=== PATIENT | female | born 1955 | race Caucasian/White ===

== ENCOUNTER → 2017-04-30 | Outpatient (CLI) | payer OTHER ==
[~2017-04-30] MED LIST: CLB200 PO; FEOSOL PO; FLV400 PO; FSM70 PO; HYDC25 PO; METH2.5T PO; PRED-301 PO; SYN50 PO; [UNRECOGNIZED DRUG - OTHER]
== END | disposition home or self-care (01) ==
LOC: C.LABSPEC 17:21
PROVIDERS: ATTEND Podiatrist Primary Podiatric Medicine
DX: L60.3 Nail dystrophy (principal); B35.1 Tinea unguium

== ENCOUNTER 2024-02-25 16:19 | Inpatient (IN) ==
--- NOTE | 2024-02-25 17:04 | XRay Report ---
XR chest 1V portable CLINICAL HISTORY: hypoxia in setting of trauma TECHNIQUE: Single frontal radiograph of the chest was obtained. Comparison: None available at the time of this dictation. FINDINGS: No lines and tubes are seen. Cardiomegaly is noted. The lungs are clear. No evidence of pleural effus ion or pneumothorax. IMPRESSION: No acute abnormalities and in particular no radiographic evidence of pneumonia. ACT 112: Negative or not required by law. Electronically signed by: Tod Toney M.D. 02/25/2024 5:03 PM
[2024-02-25 17:16] LABS: Basophils # (auto) 0.05 K/uL (0.00-0.20); Basophils % (auto) 0.4 %; Eosinophils # (auto) 0.01 K/uL (0.00-0.50); Eosinophils % (auto) 0.1 %; Hematocrit (blood only) 40.2 % (37.0-47.0); Hemoglobin 12.5 g/dl (12.0-16.0); Immature Granulocytes # (auto) 0.37 K/uL (0.01-0.20); Immature Granulocytes % (auto) 2.8 %; Lymphocytes # (auto) 0.89 K/uL (1.20-3.40); Lymphocytes % (auto) 6.8 %; Mean Corpuscular Hgb Conc 31.1 g/dL (32.0-36.0); Mean Corpuscular Volume 89.9 fL (80.0-100.0); Mean Platelet Volume 10.6 fL (9.4-12.4); Monocytes # (auto) 0.87 K/uL (0.11-0.59); Monocytes % (auto) 6.7 %; Neutrophils # (auto) 10.86 K/uL (1.40-6.50); Neutrophils % (auto) 83.2 %; Platelet Count 318 K/uL (130-400); RDW Coefficient of Variation 19.9 % (11.5-14.5); RDW Standard Deviation 65.7 fL (36.4-46.3); Red Blood Count 4.47 M/uL (4.20-5.40); White Blood Count 13.05 K/ul (4.8-10.8)
[2024-02-25 17:31] LABS: Albumin Globulin Ratio 0.9 (0.9-2); BUN Creatinine Ratio 34.6 (10-20); Bilirubin,Total 0.5 mg/dl (0.2-1.0); Calcium 9.8 mg/dl (8.6-10.3); Creatinine Clr Calc Pharmacy 57.8 ml/min; Est GFR (African American) 85.9 ml/min; Est GFR (Non-African American) 74.1 ml/min; Globulin 4.3 gm/dl (2.5-4.0); Potassium 4.3 mmol/L (3.5-5.1); Total Protein 8.3 gm/dl (6.0-8.3)
[2024-02-25] MEDS: ONDANSETRON INJ 2 MG/ML 2 ML VIAL IV STA (18:32)
[2024-02-25] MEDS: HYDROmorphone INJ 0.5 MG/0.5 ML SYR IV STA (18:32)
[2024-02-25] MEDS: SODIUM CHLORIDE 0.9% 1,000 ML IV ONE ×2 (18:35→21:38)
--- NOTE | 2024-02-25 18:46 | Emergency Department Note ---
Impression & Plan Fracture of tibia and fibula, Fall, Multiple rib fractures, Hypoxia admit to the [facility] ED Provider Note NAME: MATY BOWIE AGE: 68 SEX: Female INFORMANT: Patient ED PROVIDER(S): Ema Chambers DO CHIEF COMPLAINT: Fall PLAN: Disposition: Admit to the [facility] MEDICAL DECISION MAKING: this is a 68-year-old female patient who suffers from osteoarthritis and rheumatoid arthritis. She was attempting to go up a step when she fell forward landing on both knees. Severe pain in the left knee and was unable to stand up. EMS was called. In an attempt to stand her up, the and EMS providers wrapped their arms around her chest and caused some pain to her right ribs. She has obvious deformity to the left knee and pain in the left ankle. Upon arrival to the emergency department, the patient was tachycardic and hypoxic with O2 saturation of 82% on room air with deformity to the left knee and pain in the left ankle. laboratory studies reveal white count of 1313.0. H&H are stable. BUN was elevated to 28 and creatinine was normal at 0.8. Glucose was 125. X- ray shows evidence of a proximal tibia and fibula fracture On the left. The left ankle has hardware in place with no obvious surrounding fractures. CT scan of the chest shows evidence of rib fractures to the third fourth and fifth ribs on the right with no underlying issues to the lung. radiology noted some findings to the sternum and manubrium but I believe these are chronic and not new traumatic injuries for this patient. Patient was bolused with a liter of normal saline solution as she appeared to be significantly dehydrated on physical exam and had an elevated BUN. This did seem to bring her heart rate down. I discussed the case with the [facility] and they will evaluate the patient for inpatient care. Care/management discussed with: manager private and the [facility] Triage Nursing notes: reviewed and agree With them. Vital Signs: reviewed and remarkable for tachycardia and hypoxia Additional History obtained from: her is at the bedside Chronic Medical/Social Conditions affecting care: OA/RA Differential Diagnosis: pneumothorax, rib fractures, tibial plateau fracture, knee dislocation, ankle fracture Diagnostics, independently interpreted by me: ECG: sinus tachycardia at a rate of 126 with PACs. There was no ST segment elevation or signs of ischemia. Cardiac Monitoring: Sinus tachycardia at 132. Imaging studies: CT scan of the chest: As per stat read Left tib-fib x-ray: As per my independent interpretation proximal tib-fib fracture Left ankle x-ray: As per my independent interpretation,Hardware in place with no obvious surrounding fractures. HPI: 68 year old Female arrives for evaluation of fall. patient was attempting to step up 1 step when she unfortunately fell down on both knees. She immediately had pain in her left knee and left ankle. she denies injuring any other part of her body during this incident. EMS was called to the home because the asthma was able to get her up or move her. As they were attempting to get her up off of the floor with the help of the , they squeezed her rib cage on the right too hard and she then had pain in her right ribs as well. Upon arrival in the emergency department, the patient was noted to be tachycardic and hypoxic. PAST MEDICAL HISTORY: See Below, PAST SURGICAL HISTORY: See Below, SOCIAL HISTORY: See Below, HOME MEDICATIONS: See list ALLERGIES: see list VITALS: See Below PHYSICAL EXAMINATION: HEENT: Head - normocephalic and atraumatic. Pupils are equal, round, and reactive to light. Extraocular eye muscles are intact, and sclera are anicteric. Nose - moist nasal mucosa without discharge. Mouth - moist buccal mucosa. Oropharynx is nonerythematous and there is no tonsillar exudate or edema noted. Neck: Supple; no cervical lymphadenopathy Heart: Tachycardic rate and regular rhythm There is a normal S1 and S2 with no murmurs, clicks, or gallops appreciated. Lungs: Clear to auscultation bilaterally with no wheezes, rales, or rhonchi. Abdomen: Soft, completely nontender, nondistended, with good bowel sounds. There are no palpable pulsatile masses or hepatosplenomegaly. There is no guarding, rigidity, or rebound noted. Extremities: significant edema to the left knee with pain to palpation in that area. Pain to palpation over the left ankle. Patient has palpable dorsalis pedis posterior tibial pulses. She is able to wiggle the toes. She has good sensation in the foot. Skin: warm and dry with good turgor and no rashes. emergency department treatment: cardiac monitor, supplemental oxygen, IV normal saline bolus, IV Dilaudid, IV Zofran Emergency department course: Patient was evaluated in room A-3. A complete history and physical was performed. Patient was on supplemental oxygen for significant hypoxia on room airIV lock was initiated and labs were drawn as above. An order was placed for continuous cardiac monitoring. The patient was in a sinus tachycardia at a rate of 132. A twelve-lead EKG was obtained. Patient was bolused with a liter of saline solution. She was given a dose of IV Dilaudid and IV Zofran. She had plain films of her left ankle and left knee. She went for CT scan of the chest. I reviewed these findings with the patient and her . I discussed the case with the [facility] Hospitalist and they will evaluate for further inpatient care and consult orthopedics. Past Med/Surg History Problem List (Updated 02/26/24 @ 00:08 by Ema Chambers DO) Hypoxia (Acute) Multiple rib fractures (Acute) Fall (Acute) Fracture of tibia and fibula (Acute) Chest wall pain Hypoxia Fall Medical History (Updated 02/26/24 @ 00:08 by Ema Chambers DO) Osteoporosis HTN (hypertension) Hypothyroidism Rheumatoid arthritis Surgical History (Updated 02/25/24 @ 20:52 by Hawa Mireles PA-C) Hx of hysterectomy Hx of exploratory laparotomy Family History (Updated 02/25/24 @ 20:53 by Hawa Mireles PA-C) Father Myocardial infarction 77 Mother Diabetes Osteoarthritis CHF (congestive heart failure) Social History (Updated 02/25/24 @ 20:53 by Hawa Mireles PA-C) Smoking Status: Never smoker Hx Alcohol Use: No Hx Substance Use: No marital status: Current Living Situation: Spouse Feels Safe at Home: Yes Allergies Allergies Allergy/AdvReac Type Severity Reaction Status Date / Time alendronate sodium Allergy Severe THROAT Verified 02/25/24 18:39 [From Fosamax] CLOSED Home Meds Home Medications Medication Instructions Recorded Confirmed celecoxib 200 mg capsule 200 mg PO BID 02/25/24 02/25/24 hydrochlorothiazide 12.5 mg capsule 12.5 mg PO DAILY PRN Edema 02/25/24 02/25/24 hydrocodone 5 mg-acetaminophen 325 1 tab PO DIRECTED PRN Pain 02/25/24 02/25/24 mg tablet levothyroxine 50 mcg tablet 50 mcg PO DAILYBB 02/25/24 02/25/24 (Synthroid) omeprazole magnesium 20 mg 20 mg PO DAILY 02/25/24 02/25/24 tablet,delayed release (Prilosec OTC) prednisone 5 mg tablet 5 mg PO QAM 02/25/24 02/25/24 Results & Data (ED) Vital Signs Vital Signs - 24 hr 02/25/24 16:44 02/25/24 16:47 02/25/24 16:53 Temperature 36.8 C Temperature Source Oral Pulse Rate 127 H 134 H Pulse Rate [Apical] 126 H Pulse Rhythm Regular Pulse Rhythm [Apical] Regular Respiratory Rate 22 22 Respiratory Effort / Characteristics Non-Labored Respiratory Depth Normal Normal Blood Pressure 146/99 H Blood Pressure [Right Arm] 146/99 H Blood Pressure Mean 114 Blood Pressure Mean [Right Arm] 114 Blood Pressure Position [Right Arm] Lying Pulse Oximetry 82 L 97 Oxygen Delivery Method Room Air Nasal Cannula Oxygen Flow Rate 4 Sepsis Recent Fever Within 48 Hours No Sepsis New/Unexplained Change in Mental Status No Sepsis Action Taken by Nursing No Action Required 02/25/24 16:53 02/25/24 18:26 02/25/24 20:00 Temperature Temperature Source Pulse Rate 132 H Pulse Rate [Apical] 127 H 124 H Pulse Rhythm Regular Pulse Rhythm [Apical] Respiratory Rate 22 22 24 Respiratory Effort / Characteristics Non-Labored Respiratory Depth Normal Normal Blood Pressure Blood Pressure [Right Arm] 137/97 130/94 Blood Pressure Mean Blood Pressure Mean [Right Arm] 110 106 Blood Pressure Position [Right Arm] Lying Pulse Oximetry 97 96 95 Oxygen Delivery Method Nasal Cannula Nasal Cannula Nasal Cannula Oxygen Flow Rate 4 4 4 Sepsis Recent Fever Within 48 Hours Sepsis New/Unexplained Change in Mental Status Sepsis Action Taken by Nursing 02/25/24 20:27 02/25/24 22:00 Temperature Temperature Source Pulse Rate 124 H Pulse Rate [Apical] 110 H Pulse Rhythm Pulse Rhythm [Apical] Respiratory Rate 19 Respiratory Effort / Characteristics Non-Labored Respiratory Depth Normal Blood Pressure Blood Pressure [Right Arm] 113/71 Blood Pressure Mean Blood Pressure Mean [Right Arm] 85 Blood Pressure Position [Right Arm] Pulse Oximetry 95 Oxygen Delivery Method Nasal Cannula Oxygen Flow Rate 4 Sepsis Recent Fever Within 48 Hours Sepsis New/Unexplained Change in Mental Status Sepsis Action Taken by Nursing Laboratory Data 02/25/24 16:50 02/25/24 16:50 Lab Results 02/25/24 Range/Units 16:50 WBC 13.05 H (4.8-10.8) K/ul RBC 4.47 (4.20-5.40) M/uL Hgb 12.5 (12.0-16.0) g/dl Hct 40.2 (37.0-47.0) % MCV 89.9 (80.0-100.0) fL MCH 28.0 (25.0-34.0) pg MCHC 31.1 L (32.0-36.0) g/dL RDW Std Deviation 65.7 H (36.4-46.3) fL RDW Coeff of Arash 19.9 H (11.5-14.5) % Plt Count 318 (130-400) K/uL MPV 10.6 (9.4-12.4) fL Immature Gran % (Auto) 2.8 % Neut % (Auto) 83.2 % Lymph % (Auto) 6.8 % [place] % (Auto) 6.7 % Eos % (Auto) 0.1 % Baso % (Auto) 0.4 % Neut # (Auto) 10.86 H (1.40-6.50) K/uL Lymph # (Auto) 0.89 L (1.20-3.40) K/uL [place] # (Auto) 0.87 H (0.11-0.59) K/uL Eos # (Auto) 0.01 (0.00-0.50) K/uL Baso # (Auto) 0.05 (0.00-0.20) K/uL Immature Gran # (Auto) 0.37 H (0.01-0.20) K/uL Sodium 137 (136-145) mmol/L Potassium 4.3 (3.5-5.1) mmol/L Chloride 104 (98-107) mmol/L Carbon Dioxide 22 (21-32) mmol/L Anion Gap 11 (3-11) BUN 28 H (6-23) mg/dl Creatinine 0.81 (0.6-1.2) mg/dl Est Cr Clr Drug Dosing 57.8 ml/min Est GFR ( Amer) 85.9 ml/min Est GFR (Non-Af Amer) 74.1 ml/min BUN/Creatinine Ratio 34.6 H (10-20) Glucose 125 H (70-99(Fasting)) mg/dl Calcium 9.8 (8.6-10.3) mg/dl Magnesium 1.9 (1.7-2.4) mg/dl Total Bilirubin 0.5 (0.2-1.0) mg/dl AST 13 (13-39) U/L ALT 15 (7-52) U/L Alkaline Phosphatase 53 (34-104) U/L Total Protein 8.3 (6.0-8.3) gm/dl Albumin 4.0 (3.4-5.0) gm/dl Globulin 4.3 H (2.5-4.0) gm/dl Albumin/Globulin Ratio 0.9 (0.9-2) Procalcitonin 0.05 (0-0.5) ng/ml Administered Medications Sodium Chloride (Nss) 1,000 mls @ 80 mls/hr IV .[id number] ONE Stop: 02/26/24 09:59 Last Admin: 02/25/24 21:38 Dose: 80 mls/hr Documented By: MANOLO Magnesium Sulfate/Dextrose (Magnesium Sulfate / D5w) 1 gm in 100 mls @ 50 mls/hr IV ONE ONE Stop: 02/25/24 23:59 Last Admin: 02/25/24 22:06 Dose: 50 mls/hr Documented By: MANOLO Oxycodone HCl (Oxycodone Hcl Ir 5 Mg Tab (Immediate Release)) 5 - 10 mg PO QID PRN PRN Reason: Pain Stop: 03/10/24 21:20 Last Admin: 02/25/24 21:40 Dose: 5 mg Documented By: MANOLO Discontinued Medications Hydromorphone HCl (Hydromorphone Inj 0.5 Mg/0.5 Ml Syr) 0.5 mg IV NOW STA Stop: 02/25/24 18:24 Last Admin: 02/25/24 18:32 Dose: 0.5 mg Documented By: ANTONIETTA Sodium Chloride (Nss) 1,000 mls @ 999 mls/hr IV .Q1H1M ONE Stop: 02/25/24 19:26 Last Infusion: 02/25/24 21:39 Dose: Infused Documented By: Admin: 02/25/24 18:35 Dose: 999 mls/hr Documented By: ANTONIETTA Ioversol (Optiray 320 100ml) 92 ml IV ONCE ONE Stop: 02/25/24 18:53 Last Admin: 02/25/24 18:53 Dose: 92 ml Documented By: RENNY Ketorolac Tromethamine (Ketorolac Tromethamine 15 Mg/Ml Vial) 15 mg IV NOW STA Stop: 02/25/24 23:14 Last Admin: 02/25/24 23:36 Dose: 15 mg Documented By: CHUCK Lidocaine (Lidocaine 5% 1 Patch) 1 patch TD ONE STA Stop: 02/25/24 23:11 Last Admin: 02/25/24 23:34 Dose: 1 patch Documented By: CHUCK Ondansetron HCl (Ondansetron Inj 2 Mg/Ml 2 Ml Vial) 4 mg IV NOW STA Stop: 02/25/24 18:24 Last Admin: 02/25/24 18:32 Dose: 4 mg Documented By: ANTONIETTA Imaging Data Radiologist's Impression: Chest X-Ray 02/25/24 16:48 XR chest 1V portable CLINICAL HISTORY: hypoxia in setting of trauma TECHNIQUE: Single frontal radiograph of the chest was obtained. Comparison: None available at the time of this dictation. FINDINGS: No lines and tubes are seen. Cardiomegaly is noted. The lungs are clear. No evidence of pleural effusion or pneumothorax. IMPRESSION: No acute abnormalities and in particular no radiographic evidence of pneumonia. ACT 112: Negative or not required by law. Electronically signed by: Tod Toney M.D. 02/25/2024 5:[address] 02/25/24 18:23 Exam(s): CT CHEST With Contrast IV Amt: 92 ml opti 320 EXAM: CT Chest With Intravenous Contrast CLINICAL HISTORY: Reason for exam: eval for trauma. TECHNIQUE: Axial computed tomography images of the chest with intravenous contrast. CTDI is 25.59 mGy and DLP is 800.9 mGy-cm. Automated exposure control was utilized for the study. A dose lowering technique was utilized adhering to the principles of ALARA. CONTRAST: Patient received 92 ml opti 320 of IV contrast COMPARISON: None FINDINGS: Lungs: Dependent atelectasis bilaterally. No mass. Pleural space: Unremarkable. No pneumothorax. No significant effusion. Heart: Unremarkable. No cardiomegaly. No significant pericardial effusion. No significant coronary artery calcifications. Mediastinum: Large hiatal hernia. Evaluation of the stomach is limited by underdistention. Thyroid: Enlarged thyroid. Hyperdense nodule in the right thyroid lobe. Further evaluation could be performed with ultrasound if clinically indicated. Bones/joints: Age indeterminate but possibly chronic compression deformities of T8, L1, L2, and partially visualized L3. Age indeterminate fracture deformity of the sternum and dislocation of the sternomanubrial joint. Age indeterminate but possibly chronic fracture deformity of the left scapula. Cervical fusion hardware. Mild anterolisthesis of T1 on T2 and T2 on T3. Mild retrolisthesis of T11 on T12. Old left rib fracture deformities. Question age-indeterminate nondisplaced fractures of the right anterior third and fourth and fifth ribs. Soft tissues: Unremarkable. Vasculature: Unremarkable. No thoracic aortic aneurysm. Lymph nodes: Unremarkable. No enlarged lymph nodes. Liver: Right hepatic cyst. Other tiny hypodensities in the kidneys are too small to definitively characterize. IMPRESSION: 1. Age indeterminate but possibly chronic compression deformities of T8, L1, L2, and partially visualized L3. 2. Age indeterminate fracture deformity of the sternum and dislocation of the sternomanubrial joint. 3. Question age-indeterminate nondisplaced fractures of the right anterior third and fourth and fifth ribs. 4. Large hiatal hernia. Evaluation of the stomach is limited by underdistention. Electronically signed by: Jenise Man M.D. 02/25/24 19:59 PM Discharge Plan Visit Data Chief Complaint: Fall ED Provider: Ema Chambers Discharge Problem: Fracture of tibia and fibula, Fall, Multiple rib fractures, Hypoxia Forms Stand Alone Forms: [facility] [employer] Prescriptions Prescriptions: No Action celecoxib 200 mg capsule 200 mg PO BID hydrocodone-acetaminophen 5-325 mg tablet 1 tab PO DIRECTED PRN (Reason: Pain) prednisone 5 mg tablet 5 mg PO QAM levothyroxine [Synthroid] 50 mcg tablet 50 mcg PO DAILYBB hydrochlorothiazide 12.5 mg capsule 12.5 mg PO DAILY PRN (Reason: Edema) omeprazole magnesium [Prilosec OTC] 20 mg Tablet,Delayed Release (Dr/Ec) 20 mg PO DAILY Referrals Referrals: Abhishek Hays DO [Primary Care Provider] - Discharge Problem: Fracture of tibia and fibula Qualifiers: Encounter type: initial encounter Fracture type: closed Laterality: left Q ualified Code(s): S82.202A - Unspecified fracture of shaft of left tibia, initial encounter for closed fracture; S82.402A - Unspecified fracture of shaft of left fibula, initial encounter for closed fracture Multiple rib fractures Qualifiers: Encounter type: initial encounter Fracture type: closed Laterality: right Q ualified Code(s): S22.41XA - Multiple fractures of ribs, right side, initial encounter for closed fracture
[2024-02-25] MEDS: OPTIRAY 320 100ml IV ONE (18:53)
--- NOTE | 2024-02-25 20:00 | CT Scan Report ---
Exam(s): CT CHEST With Contrast IV Amt: 92 ml opti 320 EXAM: CT Chest With Intravenous Contrast CLINICAL HISTORY: Reason for exam: eval for trauma. TECHNIQUE: Axial computed tomography images of the chest with intravenous contrast. CTDI is 25.59 mGy and DLP is 800.9 mGy-cm. Automated exposure control was utilized for the study. A dose lowering technique was utilized adhering to the principles of ALARA. CONTRAST: Patient received 92 ml opti 320 of IV contrast COMPARISON: None FINDINGS: Lungs: Dependent atelectasis bilaterally. No mass. Pleural space: Unremarkable. No pneumothorax. No significant effusion. Heart: Unremarkable. No cardiomegaly. No significant pericardial effusion. No significant coronary artery calcifications. Mediastinum: Large hiatal hernia. Evaluation of the stomach is limited by underdistention. Thyroid: Enlarged thyroid. Hyperdense nodule in the right thyroid lobe. Further evaluation could be performed with ultrasound if clinically indicated. Bones/joints: Age indeterminate but possibly chronic compression deformities of T8, L1, L2, and partially visualized L3. Age indeterminate fracture deformity of the sternum and dislocation of the sternomanubrial joint. Age indeterminate but possibly chronic fracture deformity of the left scapula. Cervical fusion hardware. Mild anterolisthesis of T1 on T2 and T2 on T3. Mild retrolisthesis of T11 on T12. Old left rib fracture deformities. Question age-indeterminate nondisplaced fractures of the right anterior third and fourth and fifth ribs. Soft tissues: Unremarkable. Vasculature: Unremarkable. No thoracic aortic aneurysm. Lymph nodes: Unremarkable. No enlarged lymph nodes. Liver: Right hepatic cyst. Other tiny hypodensities in the kidneys are too small to definitively characterize. IMPRESSION: 1. Age indeterminate but possibly chronic compression deformities of T8, L1, L2, and partially visualized L3. 2. Age indeterminate fracture deformity of the sternum and dislocation of the sternomanubrial joint. 3. Question age-indeterminate nondisplaced fractures of the right anterior third and fourth and fifth ribs. 4. Large hiatal hernia. Evaluation of the stomach is limited by underdistention. Electronically signed by: Jenise Man M.D. 02/25/24 19:59 PM
--- NOTE | 2024-02-25 20:54 | History & Physical Report ---
Date of Service February 25, 2024 Assessment & Plan (1) Fall: (2) Rheumatoid arthritis: (3) Hypoxia: (4) Chest wall pain: Plan This is a 68-year-old female who has significant past medical history of osteoporosis, hypothyroidism, rheumatoid arthritis and iron deficiency anemia wh o presents to ED after sustaining a fall today. Please refer to Dr. Thurston addendum for details regarding assessment and plan. History and physical exam was completed by undersigned. Layne Mireles PA-C History of Present Illness Chief Complaint: Fall prior to arrival. Primary Care Provider: Abhishek Hays, This is a 68-year-old female who has significant past medical history of osteoporosis, hypothyroidism, rheumatoid arthritis and iron deficiency anemia who presents to ED after sustaining a fall today. She was attempting to go up a step whenever she fell forward landing on both of her knees. She had significant pain in her left knee and unable to get up. EMS was summoned and when EMS arrived they tried to wrap arms around her chest causing pain in her ribs. Due to her rheumatoid arthritis she has chronic deformities and ambulates with a rollator. She has history of falls but has been without a fall for 5 years. Her last fall 5 years ago resulted in significant trauma with suspected sternal fracture, bilateral ankle fractures and right leg fracture requiring surgery. She said she has done quite well up until today. Prior to her fall today she was having no acute issues. She denies any recent illness. She denies fever, chills, sweats, lightheadedness, dizziness, shortness breath, cough, nausea, vomiting or abdominal pain. Currently she is experiencing some right lateral pain on her ribs that is worse with inspiration. She denies any current cough or hemoptysis. She is also complaining to pain to her left knee. In ED patient was tachycardic likely secondary to pain. She was hypoxic requiring oxygen supplementation. Allergies Allergy/AdvReac Type Severity Reaction Status Date / Time alendronate sodium Allergy Severe THROAT Verified 02/25/24 18:39 [From Fosamax] CLOSED Home Medications Medication Instructions Recorded Confirmed Type celecoxib 200 mg capsule 200 mg PO BID 02/25/24 02/25/24 History hydrochlorothiazide 12.5 mg capsule 12.5 mg PO DAILY PRN Edema 02/25/24 02/25/24 History hydrocodone 5 mg-acetaminophen 325 1 tab PO DIRECTED PRN Pain 02/25/24 02/25/24 History mg tablet levothyroxine 50 mcg tablet 50 mcg PO DAILYBB 02/25/24 02/25/24 History (Synthroid) omeprazole magnesium 20 mg 20 mg PO DAILY 02/25/24 02/25/24 History tablet,delayed release (Prilosec OTC) prednisone 5 mg tablet 5 mg PO QAM 02/25/24 02/25/24 History Past Med/Surg History Problem List (Updated 02/26/24 @ 00:08 by Ema Chambers DO) Hypoxia (Acute) Multiple rib fractures (Acute) Fall (Acute) Fracture of tibia and fibula (Acute) Chest wall pain Hypoxia Fall Medical History (Updated 02/26/24 @ 00:08 by Ema Chambers DO) Osteoporosis HTN (hypertension) Hypothyroidism Rheumatoid arthritis Surgical History (Updated 02/25/24 @ 20:52 by Hawa Mireles PA-C) Hx of hysterectomy Hx of exploratory laparotomy Family History (Updated 02/25/24 @ 20:53 by Hawa Mireles PA-C) Father Myocardial infarction 77 Mother Diabetes Osteoarthritis CHF (congestive heart failure) Social History (Updated 02/25/24 @ 20:53 by Hawa Mireles PA-C) Smoking Status: Never smoker Second Hand Exposure: No; Do You Dip or Chew Tobacco: No; Hx Alcohol Use: No Hx Substance Use: No Beliefs That Will Affect Care: None marital status: Current Living Situation: Spouse Other Information That Helps Us Care for You: No Feels Safe at Home: Yes Safety Concerns: Feels Safe At This Time Assistive Devices: Glasses and Walker Assistive Devices Comment: glasses here Review of Systems Review of Systems: All systems reviewed & are unremarkable except as noted in HPI & below Physical Exam Physical Exam: Constitutional: WD/WN, vitals as above, NAD, sitting up in bed, pleasant, co nversing easily Head: Normocephalic, Atraumatic Eyes: PERRL, conjunctivae normal, anicteric sclerae ENMT: external ear and nose normal, oropharynx normal Neck: trachea midline, no thyromegaly normal visual inspection Respiratory: normal respiratory effort, lungs clear to auscultation, no wheeze, rales, rhonchi. Normal insp/exp effort, no accessory muscle use Cardiovascular: tachycardic rate, reg rhythm, no murmur, no edema Vessels: no JVD or carotid bruit Chest:+ sternal deformity, pt reports present for 5 years Abdomen: normal bowel sounds, soft, nontender, no hepatosplenomegaly Musculoskeletal: no cyanosis or clubbing, + edema, pain to lateral aspect L knee, obvious deformity Skin: no rashes, warm and dry normal turgor Neurologic: PERRL, EOMI, accommodation nl, no face palsy, no dysarthria CN's II-XI intact bilaterally Psychiatric: A+Ox3, euthymic affect Lymphatic: no cervical or axillary lymphadenopathy : deferred Results & Data Results & Data Vital Signs (Past 12 Hours) Vital Signs Temp Pulse Pulse Resp BP BP Pulse Ox 02/25/24 20:27 124 H 02/25/24 20:00 124 H 24 130/94 95 02/25/24 18:26 127 H 22 137/97 96 02/25/24 16:53 132 H 22 97 02/25/24 16:53 126 H 22 146/99 H 97 02/25/24 16:47 36.8 C 134 H 22 146/99 H 82 L 02/25/24 16:44 127 H O2 Del Method O2 Flow Rate 02/25/24 20:27 02/25/24 20:00 Nasal Cannula 4 02/25/24 18:26 Nasal Cannula 4 02/25/24 16:53 Nasal Cannula 4 02/25/24 16:53 Nasal Cannula 4 02/25/24 16:47 Room Air 02/25/24 16:44 Diagnostic Findings Chest X-Ray 02/25/24 16:48 XR chest 1V portable CLINICAL HISTORY: hypoxia in setting of trauma TECHNIQUE: Single frontal radiograph of the chest was obtained. Comparison: None available at the time of this dictation. FINDINGS: No lines and tubes are seen. Cardiomegaly is noted. The lungs are clear. No evidence of pleural effusion or pneumothorax. IMPRESSION: No acute abnormalities and in particular no radiographic evidence of pneumonia. ACT 112: Negative or not required by law. Electronically signed by: Tod Toney M.D. 02/25/2024 5:[address] 02/25/24 18:23 Exam(s): CT CHEST With Contrast IV Amt: 92 ml opti 320 EXAM: CT Chest With Intravenous Contrast CLINICAL HISTORY: Reason for exam: eval for trauma. TECHNIQUE: Axial computed tomography images of the chest with intravenous contrast. CTDI is 25.59 mGy and DLP is 800.9 mGy-cm. Automated exposure control was utilized for the study. A dose lowering technique was utilized adhering to the principles of ALARA. CONTRAST: Patient received 92 ml opti 320 of IV contrast COMPARISON: None FINDINGS: Lungs: Dependent atelectasis bilaterally. No mass. Pleural space: Unremarkable. No pneumothorax. No significant effusion. Heart: Unremarkable. No cardiomegaly. No significant pericardial effusion. No significant coronary artery calcifications. Mediastinum: Large hiatal hernia. Evaluation of the stomach is limited by underdistention. Thyroid: Enlarged thyroid. Hyperdense nodule in the right thyroid lobe. Further evaluation could be performed with ultrasound if clinically indicated. Bones/joints: Age indeterminate but possibly chronic compression deformities of T8, L1, L2, and partially visualized L3. Age indeterminate fracture deformity of the sternum and dislocation of the sternomanubrial joint. Age indeterminate but possibly chronic fracture deformity of the left scapula. Cervical fusion hardware. Mild anterolisthesis of T1 on T2 and T2 on T3. Mild retrolisthesis of T11 on T12. Old left rib fracture deformities. Question age-indeterminate nondisplaced fractures of the right anterior third and fourth and fifth ribs. Soft tissues: Unremarkable. Vasculature: Unremarkable. No thoracic aortic aneurysm. Lymph nodes: Unremarkable. No enlarged lymph nodes. Liver: Right hepatic cyst. Other tiny hypodensities in the kidneys are too small to definitively characterize. IMPRESSION: 1. Age indeterminate but possibly chronic compression deformities of T8, L1, L2, and partially visualized L3. 2. Age indeterminate fracture deformity of the sternum and dislocation of the sternomanubrial joint. 3. Question age-indeterminate nondisplaced fractures of the right anterior third and fourth and fifth ribs. 4. Large hiatal hernia. Evaluation of the stomach is limited by underdistention. Electronically signed by: Jenise Man M.D. 02/25/24 19:59 PM Medications Administered Medication List Discontinued Medications Hydromorphone HCl (Hydromorphone Inj 0.5 Mg/0.5 Ml Syr) 0.5 mg IV NOW STA Stop: 02/25/24 18:24 Last Admin: 02/25/24 18:32 Dose: 0.5 mg Documented By: ANTONIETTA Sodium Chloride (Nss) 1,000 mls @ 999 mls/hr IV .Q1H1M ONE Stop: 02/25/24 19:26 Last Admin: 02/25/24 18:35 Dose: 999 mls/hr Documented By: ANTONIETTA Ioversol (Optiray 320 100ml) 92 ml IV ONCE ONE Stop: 02/25/24 18:53 Last Admin: 02/25/24 18:53 Dose: 92 ml Documented By: RENNY Ondansetron HCl (Ondansetron Inj 2 Mg/Ml 2 Ml Vial) 4 mg IV NOW STA Stop: 02/25/24 18:24 Last Admin: 02/25/24 18:32 Dose: 4 mg Documented By: ANTONIETTA COVID-19 Results Results COVID-19 Adm Lab Results: RBC 3.61 M/uL (4.20-5.40) L 02/26/24 WBC 6.76 K/ul (4.8-10.8) 02/26/24 Hgb 10.2 g/dl (12.0-16.0) L 02/26/24 Hct 32.6 % (37.0-47.0) L 02/26/24 Plt Count 195 K/uL (130-400) 02/26/24 Neutrophils (%) (Auto) 64.2 % 02/26/24 Lymphocytes (%) (Auto) 21.0 % 02/26/24 Monocytes # (Auto) 0.67 K/uL (0.11-0.59) H 02/26/24 Eosinophils # (Auto) 0.22 K/uL (0.00-0.50) 02/26/24 Immature Granulocyte % (Auto) 0.9 % 02/26/24 Neutrophils # (Auto) 4.34 K/uL (1.40-6.50) 02/26/24 Lymphocytes # (Auto) 1.42 K/uL (1.20-3.40) 02/26/24 Monocytes # (Auto) 0.67 K/uL (0.11-0.59) H 02/26/24 Eosinophils # (Auto) 0.22 K/uL (0.00-0.50) 02/26/24 Basophils # (Auto) 0.05 K/uL (0.00-0.20) 02/26/24 Immature Granulocyte # (Auto) 0.06 K/uL (0.01-0.20) 4 Na 139 mmol/L (136-145) 02/26/24 K 4.0 mmol/L (3.5-5.1) 02/26/24 Cl 110 mmol/L (98-107) H 02/26/24 CO2 24 mmol/L (21-32) 02/26/24 Anion Gap 5 (3-11) 02/26/24 BUN 24 mg/dl (6-23) H 02/26/24 Creatinine 0.65 mg/dl (0.6-1.2) 02/26/24 BUN/Creatinine Ratio 36.9 (10-20) H 02/26/24 Glucose Level 101 mg/dl (70-99(Fasting)) H 02/26/24 Ca 7.9 mg/dl (8.6-10.3) L 02/26/24 Total Bilirubin 0.5 mg/dl (0.2-1.0) 02/25/24 AST/SGOT 13 U/L (13-39) 02/25/24 ALT/SGPT 15 U/L (7-52) 02/25/24 Alkaline Phosphatase 53 U/L (34-104) 02/25/24 Total Protein 8.3 gm/dl (6.0-8.3) 02/25/24 Albumin 4.0 gm/dl (3.4-5.0) 02/25/24 Globulin 4.3 gm/dl (2.5-4.0) H 02/25/24 Albumin/Globulin Ratio 0.9 (0.9-2) 02/25/24 Procalcitonin 0.05 ng/ml (0-0.5) 02/25/[address] 02/25/24 Chest X-Ray 02/25/24 Code Status & VTE Plan Code Status FULL CODE Supervising Physician Co-Signing Physician Notes IM ATTENDING : Patient seen and examined. History obtained from patient and records. Concur with salient points upon review of preceding documentation by Ms. Hawa Mireles PA-C. I take responsibility for plan of care below. FINAL ASSESSMENT AND PLAN as follows : Hypoxemic respiratory failure secondary to traumatic rib fractures Traumatic left lower leg injury rule out fracture Underlying osteoporosis, history of RA on chronic steroid Rx Hypothyroidism, euthyroid as of recent outpatient TSH Steroid-induced hyperglycemia rule out DM History of difficult intubation Med telemetry supplemental O2 Analgesia,incentive spirometry Follow official left leg x-ray results. Orthopedics consult if with fracture Check hemoglobin A1c DVT prophylaxis. SCDs for now until fracture/procedure ruled out Full code Text document was generated using [employer] voice recognition software. It may contain grammatical or spelling errors. Kindly contact undersigned for clarification of any documentation item in question.
[2024-02-25 21:38] LABS: Magnesium 1.9 mg/dl (1.7-2.4)
[2024-02-25] MEDS: oxyCODONE HCL IR 5 MG TAB (IMMEDIATE RELEASE) PO PRN (21:40)
[2024-02-25] MEDS: MAGNESIUM SULFATE / D5W 1 GM/100 ML BAG IV ONE (22:06)
[2024-02-25] MEDS: LIDOCAINE 5% 1 PATCH TD STA (23:34)
[2024-02-25] MEDS: KETOROLAC TROMETHAMINE 15 MG/ML VIAL IV STA (23:36)
[2024-02-26 00:08] LABS: Base Excess VBG -0.4 mEq/L; HCO3 VBG 25 mmol/L; Oxygen Saturation VBG 62.3 %; PCO2 VBG 42 mmHg (38-50); PO2 VBG 39 mmHg; pH VBG 7.38 (7.36-7.41)
[2024-02-26] MEDS: MoRPHine SULFATE 2 MG/ML CARP IV PRN (00:20)
[2024-02-26] MEDS: CeleBREX 200 MG CAP PO SCH (03:06)
[2024-02-26 04:45] LABS: Appearance Urine Cloudy (Clear); Bacteria Urine Automated 1+ (None Seen); Bilirubin Urine Negative (Negative); Blood Urine 1+ (Negative); Cast Urine Automated 0-2 /lpf (0-2); Color Urine Yellow; Epithelial Cell Urine Auto 0-2 /hpf (0-2); Glucose Urine UA Negative (Negative); Ketones Urine Negative (Negative); Leukocyte Esterase Urine Negative (Negative); Nitrite Urine Positive (Negative); Protein Urine 1+ (Negative); Specific Gravity Urine > 1.045 (1.000-1.030); Urobilinogen Urine Negative (Negative); WBC Urine Automated 0-5 /hpf (0-5); pH Urine 5.5 (4.5-7.5)
[2024-02-26 05:12] LABS: Calcium Oxalate Crystals Urine Present (None Prsent)
[2024-02-26] MEDS: LEVOTHYROXINE SODIUM 50 MCG TABLET PO SCH (05:31)
[2024-02-26 07:11] LABS: Basophils # (auto) 0.05 K/uL (0.00-0.20); Basophils % (auto) 0.7 %; Eosinophils # (auto) 0.22 K/uL (0.00-0.50); Eosinophils % (auto) 3.3 %; Hematocrit (blood only) 32.6 % (37.0-47.0); Hemoglobin 10.2 g/dl (12.0-16.0); Immature Granulocytes # (auto) 0.06 K/uL (0.01-0.20); Immature Granulocytes % (auto) 0.9 %; Lymphocytes # (auto) 1.42 K/uL (1.20-3.40); Mean Corpuscular Hemoglobin 28.3 pg (25.0-34.0); Mean Corpuscular Hgb Conc 31.3 g/dL (32.0-36.0); Mean Corpuscular Volume 90.3 fL (80.0-100.0); Mean Platelet Volume 10.5 fL (9.4-12.4); Monocytes # (auto) 0.67 K/uL (0.11-0.59); Monocytes % (auto) 9.9 %; Neutrophils # (auto) 4.34 K/uL (1.40-6.50); Neutrophils % (auto) 64.2 %; Platelet Count 195 K/uL (130-400); RDW Coefficient of Variation 19.9 % (11.5-14.5); RDW Standard Deviation 66.1 fL (36.4-46.3); Red Blood Count 3.61 M/uL (4.20-5.40); White Blood Count 6.76 K/ul (4.8-10.8)
--- NOTE | 2024-02-26 07:17 | XRay Report ---
XR ankle LT min 3V routine CLINICAL HISTORY: trauma COMPARISON STUDY: None. FINDINGS: Postoperative changes within the left ankle demonstrated by internal fixation with cortical plates and screws. The distal tibia and fibula are fused. There are severe degenerative changes at t he tibiotalar joint. The bones are osteopenic. Irregularity at the anterior distal tibia on the later al view favors an old, healed fracture. No definite acute fracture or dislocation within the left ank le. The hardware appears intact. IMPRESSION: 1. No definite acute fracture or dislocation within the left ankle. 2. Operative changes as described above. 3. Irregularity at the anterior distal tibia favors an old, healed fracture. ACT 112: Negative or not required by law. Electronically signed by: Long Major M.D. 02/26/2024 7:15 AM
[2024-02-26 07:19] LABS: Estimated Average Glucose 100 mg/dl; Hemoglobin A1C 5.1 % (4.5-5.6)
[2024-02-26 07:25] LABS: BUN Creatinine Ratio 36.9 (10-20); Calcium 7.9 mg/dl (8.6-10.3); Est GFR (Non-African American) 90.6 ml/min
[2024-02-26] MEDS: PANTOprazole 40 MG TAB PO SCH (08:22)
[2024-02-26] MEDS: predniSONE 5 MG TAB PO SCH (08:23)
--- NOTE | 2024-02-26 08:44 | Electrocardiogram Report ---
Test Reason : Blood Pressure : / mmHG Vent. Rate : 126 BPM Atrial Rate : 126 BPM P-R Int : 150 ms QRS Dur : 076 ms QT Int : 298 ms P-R-T Axes : 012 012 009 degrees QTc Int : 431 ms Sinus tachycardia with Premature atrial complexes Otherwise normal ECG No previous ECGs available Confirmed by John Smith ([id number]) on 02/26/2024 8:44:21 AM Referred By: REFERRED SELF Confirmed By:John Smith
--- NOTE | 2024-02-26 09:26 | XRay Report ---
XR knee LT 1 or 2V routine CLINICAL HISTORY: trauma TECHNIQUE: 2 views of the left knee were obtained. Comparison: None available at the time of this dictation. FINDINGS: Impaction fracture of the tibial plateau is seen with intra-articular extension. Fracture of the tibi a is seen. Severe osteoarthritic changes are seen. A small suprapatellar effusion is seen. Soft tissu e swelling is seen about the knee. IMPRESSION: Intra-articular fracture of the tibia and fibula with associated soft tissue swelling. ACT 112: Negative or not required by law. Electronically signed by: Tod Toney M.D. 02/26/2024 9:25 AM
[2024-02-26] MEDS: cefTRIAXone SODIUM 1,000 MG/50 ML BAG IV SCH (10:30)
--- NOTE | 2024-02-26 15:18 | CT Scan Report ---
CT knee LT wo con CLINICAL HISTORY: Left knee tibial plateau fracture COMPARISON STUDY: Left knee radiographs February 25, 2024. TECHNIQUE: Axial images of the left knee were obtained without IV contrast. Sagittal and coronal aneta nstructed reviewed. Automated exposure control was utilized for the study. A dose lowering technique was utilized adhering to the principles of ALARA. FINDINGS: There is a comminuted mildly displaced proximal left tibial fracture. Fracture extends to t he medial and lateral tibial plateaus as well as the tibial spines. A bone fragment along the lateral tibial plateau is present. There is no depression of the medial tibial plateau. Mild depression of 4 mm of the posterior aspect of the lateral tibial plateau is present. This fracture is likely acute a lthough subacute fracture could appear similar. There is also a comminuted mildly displaced left fibu lar head and neck fracture. This fracture is impacted. Severe medial compartment joint space narrowin g is noted. There is also moderate lateral and patellofemoral compartment joint space narrowing with osteophytosis. Moderate size joint effusion with lipohemarthrosis is present. IMPRESSION: 1. Comminuted mildly displaced proximal left tibial fracture which extends through the medial and lat eral tibial plateaus. Lateral tibial plateau mildly depressed. 2. Comminuted mildly displaced impacted left fibular head and neck fracture. 3. Moderate joint effusion with lipohemarthrosis. 4. Severe left knee osteoarthritis, most pronounced within the medial compartment. ACT 112: Negative or not required by law. Electronically signed by: Epifanio Tapia M.D. 02/26/2024 3:17 PM
[2024-02-26] MEDS ORDERED: POLYETHYLENE (MIRALAX) 17 GM PACK PO PRN (16:17)
--- NOTE | 2024-02-26 16:24 | Hospitalist Progress Note ---
Date of Service February 26, 2024 Assessment & Plan (1) Fall: Plan: Patient is a 68 yr female who has significant past medical history of osteoporosis, hypothyroidism, rheumatoid arthritis and iron deficiency anemia who presents to ED after sustaining a fall today. Left Tibia/Fibular Fracture Secondary to fall ---Left Knee CT:Comminuted mildly displaced proximal left tibial fracture which extends through the medial and lateral tibial plateaus. Lateral tibial plateau mildly depressed. Comminuted mildly displaced impacted left fibular head and neck fracture. Moderate joint effusion with lipohemarthrosis. Severe left knee osteoarthritis, most pronounced within the medial compartment. --Left Ankle X ray:No definite acute fracture or dislocation within the left ankle. Operative changes as described above. Irregularity at the anterior distal tibia favors an old, healed fracture. Pain control Fall precautions Bowel regimen to prevent constipation Orthopedics consulted PT OT as able Suspected UTI --Urine culture pending Empirically on Rocephin H/O Sternal, Rib fractures --CT Chest:Age indeterminate but possibly chronic compression deformities of T8, L1, L2, and partially visualized L3. Age indeterminate fracture deformity of the sternum and dislocation of the sternomanubrial joint. Question age-indeterminate nondisplaced fractures of the right anterior third and fourth and fifth ribs. Large hiatal hernia. Evaluation of the stomach is limited by underdistention. Fall precautions Incentive spirometry Pain management as above Hypoxia Likely due to restricted breathing from rib pain, pain meds contributing as well --CXR:No acute abnormalities and in particular no radiographic evidence of pneumonia. Incentive spirometry Continue supplemental oxygen as needed Rheumatoid Arthritis Psoriatic arthritis Osteoarthritis Continue home prednisone Follows with rheumatology as outpatient Hypothyroidism Continue levothyroxine DVT Px: SCDs for now --may need procedure Code Status Full code Admission and Anticipated Discharge Date Admission Date: February 25, 2024 Subjective Patient is seen and examined at bedside States having right rib and left knee pain since the fall Denies any chest pain, dyspnea, dizziness, nausea, vomiting, abdominal pain Review of Systems Review of Systems: All systems reviewed & are unremarkable except as noted in Subjective Physical Exam Physical Exam: Physical Exam: Vitals signs as noted above General Appearance:Moderately built and nourished, no apparent distress Head: normocephalic, Atraumatic Eyes: normal inspection, EOMI Neck: supple, Trachea midline Respiratory/Chest: Normal breath sounds, CTA, No accessory muscle use Cardiovascular: S1, S2, +murmur ,+Tachycardia Abdomen/GI:Soft, Non tender, Bowel sounds present Extremities/Musculoskeletal:normal inspection, L knee tender, swollen, decreased ROM, +edema, + psoriatic/RA changes and several joints Neurologic/Psych:AAOX3, grossly no focal neurological deficits Skin: normal color, warm Results & Data Results & Data Vital Signs (Past 12 Hours) Vital Signs Temp Pulse Pulse Resp BP Pulse Ox O2 Del Method 02/26/24 15:17 103 H 02/26/24 11:09 37.2 C 98 H 18 104/61 95 Nasal Cannula 02/26/24 09:53 Nasal Cannula 02/26/24 08:21 36.8 C 98 H 18 111/68 96 Nasal Cannula 02/26/24 07:26 93 H O2 Flow Rate 02/26/24 15:17 02/26/24 11:09 4 02/26/24 09:53 4 02/26/24 08:21 4 02/26/24 07:26 Laboratory Results Short CBC 02/25/24 02/26/24 Range/Units 16:50 06:16 WBC 13.05 H 6.76 (4.8-10.8) K/ul Hgb 12.5 10.2 L (12.0-16.0) g/dl Hct 40.2 32.6 L (37.0-47.0) % Plt Count 318 195 (130-400) K/uL [facility] 02/25/24 02/26/24 16:50 06:16 Sodium 137 139 Potassium 4.3 4.0 Chloride 104 110 H Carbon Dioxide 22 24 BUN 28 H 24 H Creatinine 0.81 0.65 Glucose 125 H 101 H Calcium 9.8 7.9 L Liver Function 02/25/24 Range/Units 16:50 Total Bilirubin 0.5 (0.2-1.0) mg/dl AST 13 (13-39) U/L ALT 15 (7-52) U/L Alkaline Phosphatase 53 (34-104) U/L Albumin 4.0 (3.4-5.0) gm/dl Urine 02/26/24 Range/Units 04:06 Urine Color Yellow Urine Appearance Cloudy A (Clear) Urine pH 5.5 (4.5-7.5) Ur Specific [place] > 1.045 H (1.000-1.030) Urine Protein 1+ H (Negative) Urine Glucose (UA) Negative (Negative)
[2024-02-26] MEDS: DOCUSATE SODIUM 100 MG CAP PO SCH (20:41)
[2024-02-26] MEDS: LIDOCAINE 5% 1 PATCH TD SCH (20:41)
[2024-02-27 06:45] LABS: Hematocrit (blood only) 34.6 % (37.0-47.0); Hemoglobin 10.7 g/dl (12.0-16.0); Mean Corpuscular Hemoglobin 28.1 pg (25.0-34.0); Mean Corpuscular Hgb Conc 30.9 g/dL (32.0-36.0); Mean Corpuscular Volume 90.8 fL (80.0-100.0); Mean Platelet Volume 11.2 fL (9.4-12.4); Platelet Count 201 K/uL (130-400); RDW Coefficient of Variation 20.2 % (11.5-14.5); RDW Standard Deviation 67.9 fL (36.4-46.3); Red Blood Count 3.81 M/uL (4.20-5.40); White Blood Count 7.79 K/ul (4.8-10.8)
[2024-02-27 08:03] LABS: BUN Creatinine Ratio 32.1 (10-20); Calcium 8.1 mg/dl (8.6-10.3); Creatinine Clr Calc Pharmacy 85.3 ml/min; Est GFR (African American) 110.3 ml/min; Est GFR (Non-African American) 95.1 ml/min; Potassium 4.1 mmol/L (3.5-5.1)
--- NOTE | 2024-02-27 09:17 | Orthopedic Consultation ---
Date of Consultation February 27, 2024 Assessment & Plan (1) Closed fracture of left tibial plateau: She has a mildly comminuted and mildly displaced bicondylar tibial plateau fracture in the setting of obvious severe osteoporosis and tricompartmental osteoarthritis. I would recommend nonoperative management of this injury. She should remain nonweightbearing in a knee immobilizer. I discussed with her that obviously transfers and ambulation are can be very difficult for her due to her severe upper extremity deformities and weakness that will likely make it difficult for her to bear weight on her upper extremities. He reports that he is unable to lift her, and she may therefore very likely require rehab placement while this fracture heals. This will likely take several months. She can follow-up with one of our knee surgeons in orthopedics clinic (Dr. Knight, Dr. Rodriguez) 1-2 weeks after discharge. Please call [facility] at [phone] to make an appointment. Orthopedics will sign off. History of Present Illness Reason for Consultation: "Intra-articular fracture of the tibia and fibula" Requesting Physician: Dr. Dunaway Attending Physician: Antonio Dunaway MD History of Present Illness Ms. Greenfield is a 68 year old female with known osteoporosis and severe rheumatoid arthritis who injured her left knee during a ground-level fall on 02/25/24. She had immediate pain and inability to wear bear weight on her left leg. She was picked up by EMS around her torso, causing rib pain. This is presumably restricting her breathing, as she is currently requiring oxygen supplementation. She has a history of a fall about 5 years ago causing sternal fracture, bilateral ankle fracture, and what sounds like a tibial shaft fracture. She is accompanied by her today. They report that she has been diagnosed with osteoporosis at least 4 years ago, but is not currently on any medication for this. She took 1 dose of Fosamax and had what sounds like an allergic reaction, and has never had any other treatment. Of note, she c urrently ambulates with a rollator walker. She has severe bilateral hand deformity, right worse than left, with diffuse upper extremity weakness related to her rheumatoid arthritis. She had pre-existing bilateral knee pain, right worse than left. Allergies Allergy/AdvReac Type Severity Reaction Status Date / Time alendronate sodium Allergy Severe THROAT Verified 02/25/24 18:39 [From Fosamax] CLOSED Home Medications Medication Instructions Recorded Confirmed Type celecoxib 200 mg capsule 200 mg PO BID 02/25/24 02/25/24 History hydrochlorothiazide 12.5 mg capsule 12.5 mg PO DAILY PRN Edema 02/25/24 02/25/24 History hydrocodone 5 mg-acetaminophen 325 1 tab PO DIRECTED PRN Pain 02/25/24 02/25/24 History mg tablet levothyroxine 50 mcg tablet 50 mcg PO DAILYBB 02/25/24 02/25/24 History (Synthroid) omeprazole magnesium 20 mg 20 mg PO DAILY 02/25/24 02/25/24 History tablet,delayed release (Prilosec OTC) prednisone 5 mg tablet 5 mg PO QAM 02/25/24 02/25/24 History Patient History Medical History (Updated 02/27/24 @ 11:01 by Harry Perez M.D.) Osteoporosis HTN (hypertension) Hypothyroidism Rheumatoid arthritis Surgical History (Updated 02/25/24 @ 20:52 by Hawa Mireles PA-C) Hx of hysterectomy Hx of exploratory laparotomy Family History (Updated 02/25/24 @ 20:53 by Hawa Mireles PA-C) Father Myocardial infarction 77 Mother Diabetes Osteoarthritis CHF (congestive heart failure) Social History (Updated 02/25/24 @ 20:53 by Hawa Mireles PA-C) Smoking Status: Never smoker Second Hand Exposure: No; Do You Dip or Chew Tobacco: No; Hx Alcohol Use: No Hx Substance Use: No Communication Ability: Effective Beliefs That Will Affect Care: None marital status: Current Living Situation: Spouse Other Information That Helps Us Care for You: No Feels Safe at Home: Yes Safety Concerns: Feels Safe At This Time Assistive Devices: Raised Toilet Seat and Walker Assistive Devices Comment: glasses here Physical Exam Physical Exam: Examination of her left knee reveals no gross deformity, and surprisingly mild swelling. No significant ecchymosis. Range of motion was not tested due to the known fracture. Compartments are soft and compressible. Intact toe and ankle dorsiflexion and plantarflexion, although severe deformities of her toes are noted. Sensation is intact to light touch. Results & Data Vital Signs (Past 12 Hours) Vital Signs Temp Pulse Pulse Resp BP BP Pulse Ox 02/27/24 08:14 06/01/24 07:21 36.6 C 108 H 18 99/68 L 90 02/27/24 03:01 36.5 C 107 H 18 111/76 92 02/26/24 23:15 36.7 C 103 H 20 124/80 93 02/26/24 22:57 105 H O2 Del Method O2 Flow Rate 02/27/24 08:14 Nasal Cannula 3 02/27/24 07:21 Nasal Cannula 2 02/27/24 03:01 Nasal Cannula 2 02/26/24 23:15 Nasal Cannula 2 02/26/24 22:57 Diagnostic Findings Previous x-rays and CT scan of the left knee, as well as x-rays of the left ankle were all independently interpreted by me. Her left knee x-rays and CT scan show a mildly comminuted and and mildly displaced bicondylar tibial plateau fracture. Overall the joint line is well-maintained, with relatively mild depression of the proximal tibial metaphysis. She has obvious severe pre- existing tricompartmental arthritis with valgus collapse of the knee. Obvious osteopenia. Left ankle x-rays show fixation of a previous by malleolar ankle fracture. There is severe ankle joint arthritis. No acute fractures or hardware failure is seen. (1) Closed fracture of left tibial plateau Encounter type: initial encounter Qualified Code(s): S82.142A - Displaced bicondylar fracture of left tibia, initial encounter for closed fracture
--- NOTE | 2024-02-27 17:39 | Hospitalist Progress Note ---
Date of Service February 27, 2024 Assessment & Plan (1) Fall: Plan: Patient is a 68 yr female who has significant past medical history of osteoporosis, hypothyroidism, rheumatoid arthritis and iron deficiency anemia who presents to ED after sustaining a fall today. Left Tibia/Fibular Fracture Secondary to fall ---Left Knee CT:Comminuted mildly displaced proximal left tibial fracture which extends through the medial and lateral tibial plateaus. Lateral tibial plateau mildly depressed. Comminuted mildly displaced impacted left fibular head and neck fracture. Moderate joint effusion with lipohemarthrosis. Severe left knee osteoarthritis, most pronounced within the medial compartment. --Left Ankle X ray:No definite acute fracture or dislocation within the left ankle. Operative changes as described above. Irregularity at the anterior distal tibia favors an old, healed fracture. Pain control Fall precautions Bowel regimen to prevent constipation PT OT rere Appreciate orthopedics input: Conservative management Nonweightbearing with knee immobilizer per Ortho Will likely need rehab placement Needs follow-up with orthopedics on discharge in 1 to 2 weeks Suspected UTI --Urine culture not contribute Will discontinue IV Rocephin after 3 doses H/O Sternal, Rib fractures --CT Chest:Age indeterminate but possibly chronic compression deformities of T8, L1, L2, and partially visualized L3. Age indeterminate fracture deformity of the sternum and dislocation of the sternomanubrial joint. Question age-indeterminate nondisplaced fractures of the right anterior third and fourth and fifth ribs. Large hiatal hernia. Evaluation of the stomach is limited by underdistention. Fall precautions Incentive spirometry Pain management as above Hypoxia Likely due to restricted breathing from rib pain, pain meds contributing as well --CXR:No acute abnormalities and in particular no radiographic evidence of pneumonia. Incentive spirometry Continue supplemental oxygen as needed Titrate down supplemental oxygen as able Rheumatoid Arthritis Psoriatic arthritis Osteoarthritis Continue home prednisone Follows with rheumatology as outpatient Hypothyroidism Continue levothyroxine DVT Px: Heparin SQ Code Status Full code Admission and Anticipated Discharge Date Admission Date: February 25, 2024 Subjective Patient is seen and examined at bedside States knee pain is controlled with medications Rib pain much improved today Discussed with patient's family at bedside Denies any chest pain, dyspnea, dizziness, nausea, vomiting, abdominal pain Review of Systems Review of Systems: All systems reviewed & are unremarkable except as noted in Subjective Physical Exam Physical Exam: Physical Exam: Vitals signs as noted above General Appearance:Moderately built and nourished, no apparent distress Head: normocephalic, Atraumatic Eyes: normal inspection, EOMI Neck: supple, Trachea midline Respiratory/Chest: Normal breath sounds, CTA, No accessory muscle use Cardiovascular: S1, S2, +murmur ,+Tachycardia Abdomen/GI:Soft, Non tender, Bowel sounds present Extremities/Musculoskeletal:normal inspection, L knee tender, swollen, decreased ROM, +edema, + psoriatic/RA changes and several joints Neurologic/Psych:AAOX3, grossly no focal neurological deficits Skin: normal color, warm Results & Data Results & Data Vital Signs (Past 12 Hours) Vital Signs Temp Pulse Pulse Resp BP BP Pulse Ox 02/27/24 16:55 36.5 C 103 H 18 111/65 95 02/27/24 15:04 108 H 02/27/24 11:14 108/80 02/27/24 10:52 36.6 C 106 H 18 82/63 L 91 02/27/24 08:14 02/27/24 07:30 104 H 02/27/24 07:21 36.6 C 108 H 18 99/68 L 90 O2 Del Method O2 Flow Rate 02/27/24 16:55 Nasal Cannula 4 02/27/24 15:04 02/27/24 11:14 02/27/24 10:52 Nasal Cannula 3 02/27/24 08:14 Nasal Cannula 3 02/27/24 07:30 02/27/24 07:21 Nasal Cannula 2 Laboratory Results Short CBC 02/27/24 Range/Units 06:05 WBC 7.79 (4.8-10.8) K/ul Hgb 10.7 L (12.0-16.0) g/dl Hct 34.6 L (37.0-47.0) % Plt Count 201 (130-400) K/uL BMP 02/27/24 06:05 Sodium 139 Potassium 4.1 Chloride 108 H Carbon Dioxide 24 BUN 18 Creatinine 0.56 L Glucose 104 H Calcium 8.1 L
[2024-02-27] MEDS: HEPARIN SOD 5,000 UNIT/0.5 ML VIAL SQ SCH (20:05)
[2024-02-28 06:20] LABS: Hematocrit (blood only) 34.9 % (37.0-47.0); Hemoglobin 11.2 g/dl (12.0-16.0); Mean Corpuscular Hemoglobin 28.6 pg (25.0-34.0); Mean Corpuscular Hgb Conc 32.1 g/dL (32.0-36.0); Mean Platelet Volume 10.3 fL (9.4-12.4); Platelet Count 173 K/uL (130-400); RDW Coefficient of Variation 20.1 % (11.5-14.5); RDW Standard Deviation 65.1 fL (36.4-46.3); Red Blood Count 3.92 M/uL (4.20-5.40); White Blood Count 7.47 K/ul (4.8-10.8)
[2024-02-28 06:36] LABS: BUN Creatinine Ratio 27.4 (10-20); Creatinine Clr Calc Pharmacy 77.4 ml/min; Est GFR (African American) 106.6 ml/min; Potassium 4.2 mmol/L (3.5-5.1)
[2024-02-28] MEDS: SODIUM CHLORIDE 0.9% 1,000 ML IV ONE (12:29)
--- NOTE | 2024-02-28 15:50 | Hospitalist Progress Note ---
Date of Service February 28, 2024 Assessment & Plan (1) Fall: Plan: Patient is a 68 yr female who has significant past medical history of osteoporosis, hypothyroidism, rheumatoid arthritis and iron deficiency anemia who presents to ED after sustaining a fall today. Left Tibia/Fibular Fracture Secondary to fall ---Left Knee CT:Comminuted mildly displaced proximal left tibial fracture which extends through the medial and lateral tibial plateaus. Lateral tibial plateau mildly depressed. Comminuted mildly displaced impacted left fibular head and neck fracture. Moderate joint effusion with lipohemarthrosis. Severe left knee osteoarthritis, most pronounced within the medial compartment. --Left Ankle X ray:No definite acute fracture or dislocation within the left ankle. Operative changes as described above. Irregularity at the anterior distal tibia favors an old, healed fracture. Pain control Fall precautions Bowel regimen to prevent constipation PT OT rere Appreciate orthopedics input: Conservative management Nonweightbearing with knee immobilizer per Ortho Needs follow-up with orthopedics on discharge in 1 to 2 weeks PT recommends rehab placement Case management to help with discharge planning Abnormal urinalysis--rule out UTI --Urine culture not contribute Received IV Rocephin --3 doses H/O Sternal, Rib fractures --CT Chest:Age indeterminate but possibly chronic compression deformities of T8, L1, L2, and partially visualized L3. Age indeterminate fracture deformity of the sternum and dislocation of the sternomanubrial joint. Question age-indeterminate nondisplaced fractures of the right anterior third and fourth and fifth ribs. Large hiatal hernia. Evaluation of the stomach is limited by underdistention. Fall precautions Incentive spirometry Pain management as above Hypoxia Likely due to restricted breathing from rib pain, pain meds contributing as well --CXR:No acute abnormalities and in particular no radiographic evidence of pneumonia. Incentive spirometry Continue supplemental oxygen as needed Titrate down supplemental oxygen as able Offered obtaining CTA, patient currently refuses Reports chronic dyspnea unchanged Will continue current management Rheumatoid Arthritis Psoriatic arthritis Osteoarthritis Continue home prednisone Follows with rheumatology as outpatient Hypothyroidism Continue levothyroxine DVT Px: Heparin SQ Code Status Full code Disposition Rehab when accepted Admission and Anticipated Discharge Date Admission Date: February 25, 2024 Subjective Patient is seen and examined at bedside Decreased urine output noted by RN States having increased knee pain after physical therapy this morning Reports chronic dyspnea on exertion Discussed with patient's family at bedside Denies any chest pain, dyspnea, dizziness, nausea, vomiting, abdominal pain Review of Systems Review of Systems: All systems reviewed & are unremarkable except as noted in Subjective Physical Exam Physical Exam: Physical Exam: Vitals signs as noted above General Appearance:Moderately built and nourished, no apparent distress Head: normocephalic, Atraumatic Eyes: normal inspection, EOMI Neck: supple, Trachea midline Respiratory/Chest: Normal breath sounds, CTA, No accessory muscle use Cardiovascular: S1, S2, +murmur ,+Tachycardia Abdomen/GI:Soft, Non tender, Bowel sounds present Extremities/Musculoskeletal:normal inspection, L knee tender, swollen, decreased ROM, +edema, + psoriatic/RA changes and several joints Neurologic/Psych:AAOX3, grossly no focal neurological deficits Skin: normal color, warm Results & Data Results & Data Vital Signs (Past 12 Hours) Vital Signs Temp Pulse Pulse Resp BP Pulse Ox O2 Del Method 02/28/24 15:45 36.4 C L 91 H 20 123/78 94 Nasal Cannula 02/28/24 15:33 100 H 02/28/24 12:03 36.1 C L 98 H 20 115/79 90 Nasal Cannula 02/28/24 09:00 Nasal Cannula 02/28/24 08:10 36.9 C 92 H 20 122/82 96 Nasal Cannula 02/28/24 07:48 Nasal Cannula 02/28/24 07:30 96 H O2 Flow Rate 02/28/24 15:45 2 02/28/24 15:33 02/28/24 12:03 90 02/28/24 09:00 3 02/28/24 08:10 2 02/28/24 07:48 3 02/28/24 07:30 Laboratory Results Short CBC 02/28/24 Range/Units 05:40 WBC 7.47 (4.8-10.8) K/ul Hgb 11.2 L (12.0-16.0) g/dl Hct 34.9 L (37.0-47.0) % Plt Count 173 (130-400) K/uL BMP 02/28/24 05:40 Sodium 137 Potassium 4.2 Chloride 107 Carbon Dioxide 24 BUN 17 Creatinine 0.62 Glucose 101 H Calcium 8.0 L
--- NOTE | 2024-02-29 17:34 | Hospitalist Progress Note ---
Date of Service February 29, 2024 Assessment & Plan (1) Fall: Plan: Patient is a 68 yr female who has significant past medical history of osteoporosis, hypothyroidism, rheumatoid arthritis and iron deficiency anemia who presents to ED after sustaining a fall today. Left Tibia/Fibular Fracture Secondary to fall ---Left Knee CT:Comminuted mildly displaced proximal left tibial fracture which extends through the medial and lateral tibial plateaus. Lateral tibial plateau mildly depressed. Comminuted mildly displaced impacted left fibular head and neck fracture. Moderate joint effusion with lipohemarthrosis. Severe left knee osteoarthritis, most pronounced within the medial compartment. --Left Ankle X ray:No definite acute fracture or dislocation within the left ankle. Operative changes as described above. Irregularity at the anterior distal tibia favors an old, healed fracture. Pain control Fall precautions Bowel regimen to prevent constipation PT OT rere Appreciate orthopedics input: Conservative management Nonweightbearing with knee immobilizer per Ortho Needs follow-up with orthopedics on discharge in 1 to 2 weeks PT recommends rehab placement Stable for discharge, waiting for placement Abnormal urinalysis--rule out UTI --Urine culture not contribute Received IV Rocephin --3 doses H/O Sternal, Rib fractures --CT Chest:Age indeterminate but possibly chronic compression deformities of T8, L1, L2, and partially visualized L3. Age indeterminate fracture deformity of the sternum and dislocation of the sternomanubrial joint. Question age-indeterminate nondisplaced fractures of the right anterior third and fourth and fifth ribs. Large hiatal hernia. Evaluation of the stomach is limited by underdistention. Fall precautions Incentive spirometry Pain management as above Hypoxia Likely due to restricted breathing from rib pain, pain meds contributing as well --CXR:No acute abnormalities and in particular no radiographic evidence of pneumonia. Incentive spirometry Offered obtaining CTA, patient currently refuses Reports chronic dyspnea unchanged Wean off of supplemental oxygen as able Rheumatoid Arthritis Psoriatic arthritis Osteoarthritis Continue home prednisone Follows with rheumatology as outpatient Hypothyroidism Continue levothyroxine DVT Px: Heparin SQ Code Status Full code Disposition Rehab when accepted Admission and Anticipated Discharge Date Admission Date: February 25, 2024 Subjective Patient is seen and examined at bedside Had PT evaluation earlier today Offers no new complaints Knee pain is controlled Discussed with patient's family at bedside Denies any chest pain, dyspnea, dizziness, nausea, vomiting, abdominal pain Waiting for rehab placement Review of Systems Review of Systems: All systems reviewed & are unremarkable except as noted in Subjective Physical Exam Physical Exam: Physical Exam: Vitals signs as noted above General Appearance:Moderately built and nourished, no apparent distress Head: normocephalic, Atraumatic Eyes: normal inspection, EOMI Neck: supple, Trachea midline Respiratory/Chest: Normal breath sounds, CTA, No accessory muscle use Cardiovascular: S1, S2, +murmur ,+Tachycardia Abdomen/GI:Soft, Non tender, Bowel sounds present Extremities/Musculoskeletal:normal inspection, L knee tender, swollen, decreased ROM, +edema, + psoriatic/RA changes and several joints Neurologic/Psych:AAOX3, grossly no focal neurological deficits Skin: normal color, warm Results & Data Results & Data Vital Signs (Past 12 Hours) Vital Signs Temp Pulse Pulse Resp BP Pulse Ox O2 Del Method 02/29/24 16:46 90 02/29/24 15:06 36.6 C 94 H 18 119/79 95 Nasal Cannula 02/29/24 10:43 36.5 C 1 L 18 119/78 96 Nasal Cannula 02/29/24 08:07 80 02/29/24 07:47 Nasal Cannula 02/29/24 07:32 36.2 C L 86 18 113/65 93 Nasal Cannula O2 Flow Rate 02/29/24 16:46 02/29/24 15:06 1 02/29/24 10:43 2 02/29/24 08:07 02/29/24 07:47 2 02/29/24 07:32 2
[2024-02-29] MEDS: ACETAMINOPHEN 325 MG TAB PO PRN (20:30)
--- NOTE | 2024-03-01 12:19 | Hospitalist Progress Note ---
Date of Service March 01, 2024 Assessment & Plan (1) Fall: Plan: Patient is a 68 yr female who has significant past medical history of osteoporosis, hypothyroidism, rheumatoid arthritis and iron deficiency anemia who presents to ED after sustaining a fall today. Left Tibia/Fibular Fracture Secondary to fall ---Left Knee CT:Comminuted mildly displaced proximal left tibial fracture which extends through the medial and lateral tibial plateaus. Lateral tibial plateau mildly depressed. Comminuted mildly displaced impacted left fibular head and neck fracture. Moderate joint effusion with lipohemarthrosis. Severe left knee osteoarthritis, most pronounced within the medial compartment. --Left Ankle X ray:No definite acute fracture or dislocation within the left ankle. Operative changes as described above. Irregularity at the anterior distal tibia favors an old, healed fracture. Pain control Fall precautions Bowel regimen to prevent constipation PT OT rere Appreciate orthopedics input: Conservative management Nonweightbearing with knee immobilizer per Ortho Needs follow-up with orthopedics on discharge in 1 to 2 weeks Plan to discharge to acute rehab facility today Abnormal urinalysis--rule out UTI --Urine culture not contribute Received IV Rocephin --3 doses H/O Sternal, Rib fractures --CT Chest:Age indeterminate but possibly chronic compression deformities of T8, L1, L2, and partially visualized L3. Age indeterminate fracture deformity of the sternum and dislocation of the sternomanubrial joint. Question age-indeterminate nondisplaced fractures of the right anterior third and fourth and fifth ribs. Large hiatal hernia. Evaluation of the stomach is limited by underdistention. Fall precautions Incentive spirometry Pain management as above Hypoxia Likely due to restricted breathing from rib pain, pain meds contributing as well --CXR:No acute abnormalities and in particular no radiographic evidence of pneumonia. Incentive spirometry Offered obtaining CTA, patient currently refuses Reports chronic dyspnea unchanged from baseline Wean off of supplemental oxygen as able Rheumatoid Arthritis Psoriatic arthritis Osteoarthritis Continue home prednisone Follows with rheumatology as outpatient Hypothyroidism Continue levothyroxine DVT Px: Heparin SQ Code Status Full code Disposition Acute Rehab Admission and Anticipated Discharge Date Admission Date: February 25, 2024 Subjective Patient is seen and examined at bedside Doing well today Discussed with patient's family at bedside Patient offers no new complaints Knee pain is controlled Plan to be discharged to rehab facility today Denies any chest pain, dyspnea, dizziness, nausea, vomiting, abdominal pain Review of Systems Review of Systems: All systems reviewed & are unremarkable except as noted in Subjective Physical Exam Physical Exam: Physical Exam: Vitals signs as noted above General Appearance:Moderately built and nourished, no apparent distress Head: normocephalic, Atraumatic Eyes: normal inspection, EOMI Neck: supple, Trachea midline Respiratory/Chest: Normal breath sounds, CTA, No accessory muscle use Cardiovascular: S1, S2, +murmur Abdomen/GI:Soft, Non tender, Bowel sounds present Extremities/Musculoskeletal:normal inspection, L knee tender, swollen, decreased ROM, +edema, + psoriatic/RA changes and several joints Neurologic/Psych:AAOX3, grossly no focal neurological deficits Skin: normal color, warm Results & Data Results & Data Vital Signs (Past 12 Hours) Vital Signs Temp Pulse Resp BP Pulse Ox O2 Del Method O2 Flow Rate 03/01/24 11:46 36.5 C 99 H 18 113/60 95 Nasal Cannula 2 03/01/24 07:37 36.6 C 92 H 18 123/81 96 Nasal Cannula 2 03/01/24 04:15 36.3 C L 82 16 113/76 97 Room Air
--- NOTE | 2024-03-01 12:43 | Discharge Summary ---
Date of Service March 01, 2024 Admission HPI Per Admitting Provider This is a 68-year-old female who has significant past medical history of osteoporosis, hypothyroidism, rheumatoid arthritis and iron deficiency anemia who presents to ED after sustaining a fall today. She was attempting to go up a step whenever she fell forward landing on both of her knees. She had significant pain in her left knee and unable to get up. EMS was summoned and when EMS arrived they tried to wrap arms around her chest causing pain in her ribs. Due to her rheumatoid arthritis she has chronic deformities and ambulates with a rollator. She has history of falls but has been without a fall for 5 years. Her last fall 5 years ago resulted in significant trauma with suspected sternal fracture, bilateral ankle fractures and right leg fracture requiring surgery. She said she has done quite well up until today. Prior to her fall today she was having no acute issues. She denies any recent illness. She denies fever, chills, sweats, lightheadedness, dizziness, shortness breath, cough, nausea, vomiting or abdominal pain. Currently she is experiencing some right lateral pain on her ribs that is worse with inspiration. She denies any current cough or hemoptysis. She is also complaining to pain to her left knee. In ED patient was tachycardic likely secondary to pain. She was hypoxic requiring oxygen supplementation. Admission Exam Per Admitting Provider Constitutional: WD/WN, vitals as above, NAD, sitting up in bed, pleasant, conversing easily Head: Normocephalic, Atraumatic Eyes: PERRL, conjunctivae normal, anicteric sclerae ENMT: external ear and nose normal, oropharynx normal Neck: trachea midline, no thyromegaly normal visual inspection Respiratory: normal respiratory effort, lungs clear to auscultation, no wheeze, rales, rhonchi. Normal insp/exp effort, no accessory muscle use Cardiovascular: tachycardic rate, reg rhythm, no murmur, no edema Vessels: no JVD or carotid bruit Chest:+ sternal deformity, pt reports present for 5 years Abdomen: normal bowel sounds, soft, nontender, no hepatosplenomegaly Musculoskeletal: no cyanosis or clubbing, + edema, pain to lateral aspect L knee, obvious deformity Skin: no rashes, warm and dry normal turgor Neurologic: PERRL, EOMI, accommodation nl, no face palsy, no dysarthria CN's II-XI intact bilaterally Psychiatric: A+Ox3, euthymic affect Lymphatic: no cervical or axillary lymphadenopathy : deferred Principal Diagnosis Left Tibia/Fibular Fracture Secondary to Fall Hypoxia Discharge Data Allergies Allergy/AdvReac Type Severity Reaction Status Date / Time alendronate sodium Allergy Severe THROAT Verified 02/25/24 18:39 [From Fosamax] CLOSED Consultations 02/25/24 20:49 ED Decision to Admit Stat 02/26/24 11:37 Consult Orthopedic Surgery Routine Procedures Performed Laboratory Results WBC 7.47 K/ul (4.8-10.8) 02/28/24 05:40 RBC 3.92 M/uL (4.20-5.40) L 02/28/24 05:40 Hgb 11.2 g/dl (12.0-16.0) L 02/28/24 05:40 Hct 34.9 % (37.0-47.0) L 02/28/24 05:40 MCV 89.0 fL (80.0-100.0) 02/28/24 05:40 MCH 28.6 pg (25.0-34.0) 02/28/24 05:40 MCHC 32.1 g/dL (32.0-36.0) 02/28/24 05:40 RDW Std Deviation 65.1 fL (36.4-46.3) H 02/28/24 05:40 RDW Coeff of Arash 20.1 % (11.5-14.5) H 02/28/24 05:40 Plt Count 173 K/uL (130-400) 02/28/24 05:40 MPV 10.3 fL (9.4-12.4) 02/28/24 05:40 Immature Gran % (Auto) 0.9 % 02/26/24 06:16 Neut % (Auto) 64.2 % 02/26/24 06:16 Lymph % (Auto) 21.0 % 02/26/24 06:16 Callaway % (Auto) 9.9 % 02/26/24 06:16 Eos % (Auto) 3.3 % 02/26/24 06:16 Baso % (Auto) 0.7 % 02/26/24 06:16 Neut # (Auto) 4.34 K/uL (1.40-6.50) 02/26/24 06:16 Lymph # (Auto) 1.42 K/uL (1.20-3.40) 02/26/24 06:16 Callaway # (Auto) 0.67 K/uL (0.11-0.59) H 02/26/24 06:16 Eos # (Auto) 0.22 K/uL (0.00-0.50) 02/26/24 06:16 Baso # (Auto) 0.05 K/uL (0.00-0.20) 02/26/24 06:16 Immature Gran # (Auto) 0.06 K/uL (0.01-0.20) 02/26/24 06:16 VBG pH 7.38 (7.36-7.41) 02/25/24 23:52 VBG pCO2 42 mmHg (38-50) 02/25/24 23:52 VBG pO2 39 mmHg 02/25/24 23:52 VBG HCO3 25 mmol/L 02/25/24 23:52 VBG O2 Saturation 62.3 % 02/25/24 23:52 VBG Base Excess -0.4 mEq/L 02/25/24 23:52 Sodium 137 mmol/L (136-145) 02/28/24 05:40 Potassium 4.2 mmol/L (3.5-5.1) 02/28/24 05:40 Chloride 107 mmol/L (98-107) 02/28/24 05:40 Carbon Dioxide 24 mmol/L (21-32) 02/28/24 05:40 Anion Gap 6 (3-11) 02/28/24 05:40 BUN 17 mg/dl (6-23) 02/28/24 05:40 Creatinine 0.62 mg/dl (0.6-1.2) 02/28/24 05:40 Est Cr Clr Drug Dosing 77.4 ml/min 02/28/24 05:40 Est GFR ( Amer) 106.6 ml/min 02/28/24 05:40 Est GFR (Non-Af Amer) 92.0 ml/min 02/28/24 05:40 BUN/Creatinine Ratio 27.4 (10-20) H 02/28/24 05:40 Glucose 101 mg/dl (70-99(Fasting)) H 02/28/24 05:40 Estimat Average Glucose 100 mg/dl 02/25/24 16:50 Hemoglobin A1c 5.1 % (4.5-5.6) 02/25/24 16:50 Lactate 1.6 mmol/L (0.4-2.0) 02/25/24 23:52 Calcium 8.0 mg/dl (8.6-10.3) L 02/28/24 05:40 Magnesium 1.9 mg/dl (1.7-2.4) 02/25/24 16:50 Total Bilirubin 0.5 mg/dl (0.2-1.0) 02/25/24 16:50 AST 13 U/L (13-39) 02/25/24 16:50 ALT 15 U/L (7-52) 02/25/24 16:50 Alkaline Phosphatase 53 U/L (34-104) 02/25/24 16:50 Total Protein 8.3 gm/dl (6.0-8.3) 02/25/24 16:50 Albumin 4.0 gm/dl (3.4-5.0) 02/25/24 16:50 Globulin 4.3 gm/dl (2.5-4.0) H 02/25/24 16:50 Albumin/Globulin Ratio 0.9 (0.9-2) 02/25/24 16:50 Procalcitonin 0.05 ng/ml (0-0.5) 02/25/24 16:50 Urine Color Yellow 02/26/24 04:06 Urine Appearance Cloudy (Clear) A 02/26/24 04:06 Urine pH 5.5 (4.5-7.5) 02/26/24 04:06 Ur Specific [place] > 1.045 (1.000-1.030) H 02/26/24 04:06 Urine Protein 1+ (Negative) H 02/26/24 04:06 Urine Glucose (UA) Negative (Negative) 02/26/24 04:06 Urine Ketones Negative (Negative) 02/26/24 04:06 Urine Blood 1+ (Negative) H 02/26/24 04:06 Urine Nitrite Positive (Negative) A 02/26/24 04:06 Urine Bilirubin Negative (Negative) 02/26/24 04:06 Urine Urobilinogen Negative (Negative) 02/26/24 04:06 Ur Leukocyte Esterase Negative (Negative) 02/26/24 04:06 Urine WBC (Auto) 0-5 /hpf (0-5) 02/26/24 04:06 Urine RBC (Auto) 3-5 /hpf (0-2) H 02/26/24 04:06 U Hyaline Cast (Auto) 0-2 /lpf (0-2) 02/26/24 04:06 U Epithel Cells (Auto) 0-2 /hpf (0-2) 02/26/24 04:06 Urine Bacteria (Auto) 1+ (None Seen) H 02/26/24 04:06 Calcium Oxalate Crystal Present (None Prsent) A 02/26/24 04:06 Impressions Chest X-Ray 02/25/24 16:48 XR chest 1V portable CLINICAL HISTORY: hypoxia in setting of trauma TECHNIQUE: Single frontal radiograph of the chest was obtained. Comparison: None available at the time of this dictation. FINDINGS: No lines and tubes are seen. Cardiomegaly is noted. The lungs are clear. No evidence of pleural effusion or pneumothorax. IMPRESSION: No acute abnormalities and in particular no radiographic evidence of pneumonia. ACT 112: Negative or not required by law. Electronically signed by: Tod Toney M.D. 02/25/2024 5:03 PM Ankle X-Ray 02/25/24 18:23 XR ankle LT min 3V routine CLINICAL HISTORY: trauma COMPARISON STUDY: None. FINDINGS: Postoperative changes within the left ankle demonstrated by internal fixation with cortical plates and screws. The distal tibia and fibula are fused. There are severe degenerative changes at the tibiotalar joint. The bones are osteopenic. Irregularity at the anterior distal tibia on the lateral view favors an old, healed fracture. No definite acute fracture or dislocation within the left ankle. The hardware appears intact. IMPRESSION: 1. No definite acute fracture or dislocation within the left ankle. 2. Operative changes as described above. 3. Irregularity at the anterior distal tibia favors an old, healed fracture. ACT 112: Negative or not required by law. Electronically signed by: Long Major M.D. 02/26/2024 7:[address] 02/25/24 18:23 Exam(s): CT CHEST With Contrast IV Amt: 92 ml opti 320 EXAM: CT Chest With Intravenous Contrast CLINICAL HISTORY: Reason for exam: eval for trauma. TECHNIQUE: Axial computed tomography images of the chest with intravenous contrast. CTDI is 25.59 mGy and DLP is 800.9 mGy-cm. Automated exposure control was utilized for the study. A dose lowering technique was utilized adhering to the principles of ALARA. CONTRAST: Patient received 92 ml opti 320 of IV contrast COMPARISON: None FINDINGS: Lungs: Dependent atelectasis bilaterally. No mass. Pleural space: Unremarkable. No pneumothorax. No significant effusion. Heart: Unremarkable. No cardiomegaly. No significant pericardial effusion. No significant coronary artery calcifications. Mediastinum: Large hiatal hernia. Evaluation of the stomach is limited by underdistention. Thyroid: Enlarged thyroid. Hyperdense nodule in the right thyroid lobe. Further evaluation could be performed with ultrasound if clinically indicated. Bones/joints: Age indeterminate but possibly chronic compression deformities of T8, L1, L2, and partially visualized L3. Age indeterminate fracture deformity of the sternum and dislocation of the sternomanubrial joint. Age indeterminate but possibly chronic fracture deformity of the left scapula. Cervical fusion hardware. Mild anterolisthesis of T1 on T2 and T2 on T3. Mild retrolisthesis of T11 on T12. Old left rib fracture deformities. Question age-indeterminate nondisplaced fractures of the right anterior third and fourth and fifth ribs. Soft tissues: Unremarkable. Vasculature: Unremarkable. No thoracic aortic aneurysm. Lymph nodes: Unremarkable. No enlarged lymph nodes. Liver: Right hepatic cyst. Other tiny hypodensities in the kidneys are too small to definitively characterize. IMPRESSION: 1. Age indeterminate but possibly chronic compression deformities of T8, L1, L2, and partially visualized L3. 2. Age indeterminate fracture deformity of the sternum and dislocation of the sternomanubrial joint. 3. Question age-indeterminate nondisplaced fractures of the right anterior third and fourth and fifth ribs. 4. Large hiatal hernia. Evaluation of the stomach is limited by underdistention. Electronically signed by: Jenise Man M.D. 02/25/24 19:59 PM Knee X-Ray 02/25/24 18:23 XR knee LT 1 or 2V routine CLINICAL HISTORY: trauma TECHNIQUE: 2 views of the left knee were obtained. Comparison: None available at the time of this dictation. FINDINGS: Impaction fracture of the tibial plateau is seen with intra-articular extension. Fracture of the tibia is seen. Severe osteoarthritic changes are seen. A small suprapatellar effusion is seen. Soft tissue swelling is seen about the knee. IMPRESSION: Intra-articular fracture of the tibia and fibula with associated soft tissue swelling. ACT 112: Negative or not required by law. Electronically signed by: Tod Toney M.D. 02/26/2024 9:[address] 02/26/24 12:52 CT knee LT wo con CLINICAL HISTORY: Left knee tibial plateau fracture COMPARISON STUDY: Left knee radiographs February 25, 2024. TECHNIQUE: Axial images of the left knee were obtained without IV contrast. Sagittal and coronal reconstructed reviewed. Automated exposure control was utilized for the study. A dose lowering technique was utilized adhering to the principles of ALARA. FINDINGS: There is a comminuted mildly displaced proximal left tibial fracture. Fracture extends to the medial and lateral tibial plateaus as well as the tibial spines. A bone fragment along the lateral tibial plateau is present. There is no depression of the medial tibial plateau. Mild depression of 4 mm of the posterior aspect of the lateral tibial plateau is present. This fracture is likely acute although subacute fracture could appear similar. There is also a comminuted mildly displaced left fibular head and neck fracture. This fracture is impacted. Severe medial compartment joint space narrowing is noted. There is also moderate lateral and patellofemoral compartment joint space narrowing with osteophytosis. Moderate size joint effusion with lipohemarthrosis is present. IMPRESSION: 1. Comminuted mildly displaced proximal left tibial fracture which extends through the medial and lateral tibial plateaus. Lateral tibial plateau mildly de pressed. 2. Comminuted mildly displaced impacted left fibular head and neck fracture. 3. Moderate joint effusion with lipohemarthrosis. 4. Severe left knee osteoarthritis, most pronounced within the medial compartment. ACT 112: Negative or not required by law. Electronically signed by: Epifanio Tapia M.D. 02/26/2024 3:17 PM Ordered Studies 02/25/24 18:23 CT chest diagnostic w con Stat 02/26/24 12:52 CT knee LT wo con Routine Hospital Course (1) Fall: Patient is a 68 yr female who has significant past medical history of osteoporosis, hypothyroidism, rheumatoid arthritis and iron deficiency anemia who presents to ED after sustaining a fall today. Left Tibia/Fibular Fracture Secondary to fall ---Left Knee CT:Comminuted mildly displaced proximal left tibial fracture which extends through the medial and lateral tibial plateaus. Lateral tibial plateau mildly depressed. Comminuted mildly displaced impacted left fibular head and neck fracture. Moderate joint effusion with lipohemarthrosis. Severe left knee osteoarthritis, most pronounced within the medial compartment. --Left Ankle X ray:No definite acute fracture or dislocation within the left ankle. Operative changes as described above. Irregularity at the anterior distal tibia favors an old, healed fracture. Pain control Fall precautions Bowel regimen to prevent constipation PT OT rere Appreciate orthopedics input: Conservative management Nonweightbearing with knee immobilizer per Ortho Needs follow-up with orthopedics on discharge in 1 to 2 weeks Plan to discharge to acute rehab facility today Abnormal urinalysis--rule out UTI --Urine culture not contribute Received IV Rocephin --3 doses H/O Sternal, Rib fractures --CT Chest:Age indeterminate but possibly chronic compression deformities of T8, L1, L2, and partially visualized L3. Age indeterminate fracture deformity of the sternum and dislocation of the sternomanubrial joint. Question age-indeterminate nondisplaced fractures of the right anterior third and fourth and fifth ribs. Large hiatal hernia. Evaluation of the stomach is limited by underdistention. Fall precautions Incentive spirometry Pain management as above Hypoxia Likely due to restricted breathing from rib pain, pain meds contributing as well --CXR:No acute abnormalities and in particular no radiographic evidence of pneumonia. Incentive spirometry Offered obtaining CTA, patient currently refuses Reports chronic dyspnea unchanged from baseline Wean off of supplemental oxygen as able Rheumatoid Arthritis Psoriatic arthritis Osteoarthritis Continue home prednisone Follows with rheumatology as outpatient Hypothyroidism Continue levothyroxine DVT Px: Heparin SQ Code Status Full code Disposition Acute Rehab Total Time Total Time Spent Total Time Spent (In Minutes): 51 minutes Discharge Plan Discharge Items Patient Disposition: Transfer Inpatient Rehab Fac Reason For Visit: RESP FAILURE Discharge Diagnosis: Left Tibia/Fibular Fracture Secondary to Fall Hypoxia Activity: Per Instructions section Exercise/Sports: Gradually increase as tolerated Non-emergency contact: Primary Care Provider and Surgeon Call non-emergency contact if: you have any medication questions, your symptoms worsen, your pain is concerning for you and you have a fever Follow-up/Referrals: Abhishek Hays, [Primary Care Provider] - Diet: Heart Healthy Addtl Attending Provider Instructions: --Follow-up with your primary care physician in 1 week --Follow-up with your orthopedic surgeon [facility] (Dr. Knight, Dr. Rodriguez) Call [phone]) for follow-up in 1 to 2 weeks as recommended by your surgeon -- Continue Lovenox 40 mg SQ for DVT prophylaxis Seek immediate medical attention if your symptoms reoccur or worsen Please take all medications as instructed on discharge list below. Please call if you have any questions or problems. You can reach a [facility] hospitalist on duty at [facility] 24 hours a day by calling [phone] [facility] Provider Instructions: Activity: Left lower extremity nonweightbearing Use knee immobilizer with any activity Pending Studies at Discharge: No Stand-Alone Forms: My [facility] Skilled Items Patient informed of condition?: Yes DNR: No Discharge Level of Care: Acute rehab Communicable Disease: No Discharge Prognosis: Stable Lines: None Urinary Catheter: No Medications and DC Order Prescriptions: New enoxaparin [Lovenox] 40 mg/0.4 mL syringe 40 mg subcut DAILY Qty: 4 0RF lidocaine 5 % Adhesive Patch,Medicated 1 patch transdermal HS Qty: 0 0RF docusate sodium 100 mg Capsule 100 mg PO BID PRN (Reason: Constipation) Qty: 0 0RF polyethylene glycol 3350 [Miralax] 17 gram Powder In Packet 17 g PO DAILY PRNQty: 0 0RF Continued celecoxib 200 mg capsule 200 mg PO BID hydrocodone-acetaminophen 5-325 mg tablet 1 tab PO DIRECTED PRN (Reason: Pain) prednisone 5 mg tablet 5 mg PO QAM levothyroxine [Synthroid] 50 mcg tablet 50 mcg PO DAILYBB hydrochlorothiazide 12.5 mg capsule 12.5 mg PO DAILY PRN (Reason: Edema) omeprazole magnesium [Prilosec OTC] 20 mg Tablet,Delayed Release (Dr/Ec) 20 mg PO DAILY Discharge Orders: Discharge Order (Routine); Ordered 03/01/24 Ordered By: Antonio Dunaway Admission Data Admit Date/Time: 02/25/24 23:09 Attending Provider: Antonio Dunaway Admit Provider: Guero Thurston Primary Care Provider: Abhishek Hays Other Providers: Guero Thurston; Navin Beal; Sanjiv Colby; Sudeep Morataya; Jaky Loving; Jamil Canales; Stefanie Obregon; Fredy Zapata; Raymond Hancock; Black Henao; Shorty Horowitz; Raymond Ogden; Edgard Tineo; Sae Rodriguez; Isaac Taylor; Alcon Hardy; Stefanie Gayle; Stephen Castle; Jack Tejeda; Harry Perez; Mare Nathan; Navjot Acevedo; Pj Lopes; Imani Rojo; Dylan Knight; Huma Mak.; [facility]
== END 2024-03-01 15:26 | DRG 544 ==
LOC: ED 16:19 → 2N 23:09